=== PATIENT | male | born 1995 | race Two or more races ===

== ENCOUNTER 2024-04-21 06:40 | Day surgery (SDC) | payer BC, MEDICAID, SELFPAY ==
[2024-04-16 11:06] VITALS: BMI 27.1
[2024-04-21] VITALS (10 sets, daily range): BP systolic 109–134; BP diastolic 70–86; PULSE 59–76; RESP 10–21; TEMP 36.7–37.2; O2SAT 99–100; BMI 27.1
[2024-04-21] MEDS: DiphenhydrAMINE INJ 50 MG/ML VIAL 25 MG IV (07:31)
[2024-04-21] MEDS: fentaNYL CIT INJ 50 mCg/ML AMP 2ML (ASD USE ONLY) IV (07:35)
[2024-04-21] MEDS: MIDAZOLAM INJ 1 MG/ML VIAL 2 ML (ASD USE ONLY) 2 MG IV (07:35)
== END 2024-04-21 08:43 | disposition home or self-care (01) ==
PROVIDERS: PCP Family Medicine; Referring Provider Surgery; Visit Provider Surgery
PROC: 0DBE8ZX Excision of Large Intestine, Via Natural or Artificial Opening Endoscopic, Diagnostic (ICD-10-PCS; CPT 45380; principal; 2024-04-21 07:30)
DX: K62.5 Hemorrhage of anus and rectum (principal); K63.89 Other specified diseases of intestine
CPT/HCPCS: 45380; A4649; J1200; J2250; J3010